=== PATIENT | female | born 2005 | race African-American/Black ===

== ENCOUNTER 2024-09-27 13:26 | Emergency (ER) | payer OTHER, SELFPAY ==
[2024-09-27] VITALS (7 sets, daily range): BP systolic 98–121; BP diastolic 58–72; PULSE 95–128; RESP 18–26; TEMP 37.2–39.2; O2SAT 96–100
--- NOTE | ~2024-09-27 | XR_ITS ---
CHEST RADIOGRAPH CLINICAL HISTORY: cough . COMPARISON: None available TECHNIQUE: Single portable view of the chest. FINDINGS The cardiomediastinal silhouette is unremarkable. The lungs are clear. Visualized osseous structures and soft tissues are unremarkable. IMPRESSION: No focal infiltrate or effusion. Reviewed, dictated and finalized at location A. LING MANAGER
--- OUTSIDE RECORDS SUMMARY | 2024-09-27 13:28 | XMS_ITS | Clinical Summary ---
Author Organization [facility] Address [address] [place] [address] Care Team Providers Care Cilnical Scientist Name Role Phone Abhay Weaver MD Primary Care Provider [phone] Source Comments [facility],non-owned Affiliates and Associated Physician Practices is amultiple site organization consisting of ambulatory clinics and hospital sitesin [place], [place], [place] and [place]. This disclosure is being madepursuant to the Care Everywhere program and may not contain all information available regarding this patient. Last updated 18.[facility] Allergies No known active allergies Medications * Be aware that medications may not be up to date on this document. Alwaysverify current medications with the patient. Medication Sig Dispensed Refills Start Date End Date Status Pediatric Multivitamins-Iron (DECLAN DROPS/IRON PO) Take by mouth. Active ibuprofen (ADVIL; MOTRIN) 100 MG/5ML SUSP suspension Take 9 mL by mouth every 6 hours as needed for Pain and Fever. 240 mL 0 10/07/2010 Active Social History Tobacco Use Types Packs/Day Years Used Date Smoking Tobacco: Never Smokeless Tobacco: Never Alcohol Use Standard Drinks/Week Comments No 0 (1 standard drink = 0.6 oz pur e alcohol) Sex and Gender Information Value Date Recorded Sex Assigned at Not on file Gender Identity Not on file Sexual Orientation Not on file Last Filed Vital Signs Vital Sign Reading Time Taken Comments Blood Pressure 102/78 11/16/2017 8:58 PM CDT Pulse 87 11/16/2017 8:58 PM CDT Temperature 37.3 ??C (99.1 ??F) 11/16/2017 8:58 PM CD T Respiratory Rate 20 11/16/2017 8:58 PM CDT Oxygen Saturation 100% 11/16/2017 8:58 PM CDT Inhaled Oxygen Concentration - - Weight 44.1 kg (97 lb 3.6 oz) 11/16/2017 8:58 PM CDT Height 168 cm (5' 6.14 ) 11/16/2017 8:58 PM CDT Body Mass Index 15.62 11/16/2017 8:58 PM CDT Plan of Treatment Health Maintenance Due Date Last Done Comments HIV SCREENING 01/10/2019 HPV VACCINE (1 - 3-dose series) 01/10/2019 CHLAMYDIA/GONORRHEA SCREENING 2020 MENINGOCOCCAL (Group B) VACC INE (1 of 2 - Standard) 2020 HEPATITIS C SCREENING 01/06/2022 DTAP/TDAP/TD VACCINES (1 - Tdap) 01/10/2023 HEPATITIS B VACCINE (1 of 3 - 19+ 3-dose series) 01/10/2023 COVID-19 VACCINE (1 - 2023-2 5 season) 2024 INFLUENZA VACCINE (#1) 2024 DEPRESSION SCREENING 09/03/2024 ZOSTER VACCINE (1 of 2) 01/10/2054 HIB VACCINE Aged Out No longer eligi ble based on patient's age to complete this topic MENINGOCOCCAL VACCINE Aged Out No diaz amaya eligible based on patient's age to complete this topic PNEUMOCOCCAL VACCINE Aged Out No long er eligible based on patient's age to complete this topic Care Teams Cilnical Scientist Relationship Specialty Start Date End Date Abhay Weaver MD [facility] [address] [place] [address] PCP - General 10/07/10
--- OUTSIDE RECORDS SUMMARY | 2024-09-27 13:28 | XMS_ITS | Patient Health Summary ---
Author Organization [facility] [employer] Address [address] [place] [address] Care Team Providers Care Dobie Worker Name Role Phone Abhay Weaver MD Primary Care Provider [phone] Note from [facility],non-owned Affiliates and Associated Physician Practices is amultiple site organization consisting of ambulatory clinics and hospital sitesin [place], [place], [place] and [place]. This disclosure is being madepursuant to the Care Everywhere program and may not contain all information available regarding this patient. Last updated 18.[facility] Allergies No known active allergies Medications * Be aware that medications may not be up to date on this document. Alwaysverify current medications with the patient. * Pediatric Multivitamins-Iron (DECLAN DROPS/IRON PO) Take by mouth. * ibuprofen (ADVIL; MOTRIN) 100 MG/5ML SUSP suspension(Started 10/07/2010) Take 9 mL by mouth every 6 hours as needed for Pain and Fever. Social History Tobacco Use Types Packs/Day Years [...] Mass Index 15.62 11/16/2017 8:58 PM CDT Procedures * US BREAST BILATERAL LTD(Performed 08/19/2020) Performed for Lump or mass in breast * CULTURE STREP GROUP A(Performed 11/16/2017) * STREP A SCREEN DIRECT W RFLX STREP A CULTURE(Performed 11/16/2017) * US PELVIS W DOPPLER OVARIES(Performed 05/11/2015) Performed for Left lower quadrant pain * LIPASE BLOOD(Performed 05/11/2015) * AMYLASE BLOOD(Performed 05/11/2015) * COMPREHENSIVE METABOLIC PANEL(Performed 05/11/2015) * CBC W AUTO DIFFERENTIAL(Performed 05/11/2015) * XR ABD OBSTRUCTION SERIES 2VW(Performed 05/10/2015) Performed for Left lower quadrant pain * URINE MICROSCOPIC ONLY(Performed 05/10/2015) * URINALYSIS REFLEX TO MICROSCOPIC NO CULTURE(Performed 05/10/2015) * CULTURE URINE(Performed 05/10/2015) * CULTURE STREP GROUP A(Performed 10/07/2010) * STREP A SCREEN DIRECT(Performed 10/07/2010) Results * (ABNORMAL) US BREAST BILATERAL LTD (08/19/2020 3:15 PM CYTOLOGY MANAGER) Anatomical Region Laterality Modality Breast Bilateral Ultrasound 08/19/2020 3:16 PM CYTOLOGY MANAGER Narrative 08/19/2020 3:28 PM CYTOLOGY MANAGER BILATERAL BREAST LIMITED ULTRASOUND INDICATION: Palpable lumps in bilateral breasts FINDINGS: In the 8:00 position of the right breast, approximately 6 cm from the nipple, corresponding with the area of palpable lump, there is an ovoid 1.6 x 0.9 x 1.7 cm hypoechoic mass with smooth well-defined margins. The mass is uniform in echotexture and is wider than tall. In the 3:00 position of the left breast, approximately 3 cm from the nipple, corresponding with the area of palpable abnormality, there is a 2.0 x 1.8 x 1.7 cm hypoechoic mass with smooth well-defined margins. This mass is similar in contour and echotexture to the mass in the right breast. Both of these masses demonstrate the imaging characteristics of benign fibroadenomas. Given these findings, and the patient's age, these are considered probably benign findings and six-month follow-up bilateral breast ultrasounds are recommended. Alternatively, if clinician or patient concern is great enough, biopsies could be considered. These findings were discussed with the patient and her mother at the time of the ultrasound. ASSESSMENT: BI-RADS 3 - ??Probably Benign - Short Interval Follow-up Suggested RECOMMENDATION: Six-month follow-up bilateral breast ultrasound *Reading Radiologist: Dontae Mcfadden on 08/19/2020 at 3:28 PM Abhay Weaver MD US ORDERABLES * STREP A SCREEN DIRECT W RFLX STREP A CULTURE (11/16/2017 9:02 PM CDT) Strep A Rapid Negative Negative 11/16/2017 9:31 PM CDT [facility] Microbiology ENTIRE THROAT (SURFACE REGION OF NECK) / Unknown Collection / Unknown 11/16/2017 9:02 PM CDT 11/16/2017 9:16 PM CDT Narrative [facility] - 11/16/2017 9:31 PM CDT Test has reflexed to a Strep A culture. Enmanuel Cruz MD LAB - MICROBIOLOGY O CARLOS A Performing Organization Address [facility]/ZIP Co de Phone Number [facility] [address] [place] [phone] * CULTURE STREP GROUP A (11/16/2017 9:02 PM CDT) Only the most recent of2 resultswithin the time period is included. Culture Negative for beta-hemolytic Streptococcus Group A AV 11/19/2017 10:00 AM CDT [facility] Microbiology ENTIRE THROAT (SURFACE REGION OF NECK) / Unknown Collection / Unknown 11/16/2017 9:02 PM CDT 11/16/2017 9:16 PM CDT Enmanuel Cruz MD LAB - MICROBIOLOGY O CARLOS A [facility] [address] [place] [address], [facility] [phone] * US PELVIS W DOPPLER UTERUS OVARIES (05/11/2015 1:23 AM CDT) Anatomical Region Laterality Modality Ultrasound 05/11/2015 7:35 AM CDT Impressions 05/11/2015 9:32 AM CDT No sonographic evidence of ovarian torsion. The preliminary findings were discussed with Dr. Chu by Dr. Castaneda on May 11, 2015 at 0208. I, Kena Watson, have personally reviewed the images and I agree with this report. Narrative 05/11/2015 9:32 AM CDT EXAMINATION: ??Pelvic Sonogram with abdomen organ Doppler (complete) HISTORY: 10-year-old female with left lower quadrant abdominal pain. COMPARISON: ??None FINDINGS: The uterus is normal in appearance. It measures 3.1 x 0.8 x 2.0 cm. The endometrial stripe measures 1 mm. The left ovary measures 1.7 x 1.1 x 2.4 cm for a volume of 2.5 mL. ??The right ovary measures 2.0 x 1.1 x 1.8 cm for a volume of 2.0 mL. The ovarian volumes are normal for the patient's age. Symmetric flow seen on color Doppler evaluation with spectral waveform analysis. ??There are no dominant cysts or masses. Small follicles are seen in both ovaries. There is no evidence of pelvic ascites. The bladder is distended with urine but otherwise unremarkable. Procedure Note Kena Watson MD - 05/11/2015 EXAMINATION: Pelvic Sonogram with abdomen organ Doppler (complete) HISTORY: 10-year-old female with left lower quadrant abdominal pain. COMPARISON: None FINDINGS: The uterus is normal in appearance. It measures 3.1 x 0.8 x 2.0 cm. The endometrial stripe measures 1 mm. The left ovary measures 1.7 x 1.1 x 2.4 cm for a volume of 2.5 mL. The right ovary measures 2.0 x 1.1 x 1.8 cm for a volume of 2.0 mL. The ovarian volumes are normal for the patient's age. Symmetric flow seen on color Doppler evaluation with spectral waveform analysis. There are no dominant cysts or masses. Small follicles are seen in both ovaries. There is no evidence of pelvic ascites. The bladder is distended with urine but otherwise unremarkable. IMPRESSION No sonographic evidence of ovarian torsion. The preliminary findings were discussed with Dr. Chu by Dr. Castaneda on May 11, 2015 at 0208. I, Kena Watson, have personally reviewed the images and I agree with this report. Melida Chu MD ORDERABLES * (ABNORMAL) COMPREHENSIVE METABOLIC PANEL (05/11/2015 12:09 AM [facility]) Glucose 108(H) 70 - 105 mg/dL 05/11/2015 12:56 AM [facility] Sodium 141 136 - 145 mmol/L 05/11/2015 12:56 AM [facility] Potassium 4.8 3.5 - 5.1 mmol/L 05/11/2015 12:56 AM [facility] Chloride 109(H) 98 - 107 mmol/L 05/11/2015 12:56 AM [facility] CO2 19(L) 20 - 28 mmol/L 05/11/2015 12:56 AM [facility] Calcium 10.18 8.92 - 10.32 mg/dL 05/11/2015 12:56 AM [facility] Anion Gap 13 5 - 20 mmol/L 05/11/2015 12:56 AM [facility] BUN 5.8(L) 6.1 - 21.0 mg/dL 05/11/2015 12:56 AM [facility] Creatinine 0.44(L) 0.62 - 1.00 mg/dL 05/11/2015 12:56 AM [facility] Alkaline Phosphatase 426(H) 100 - 320 U/L 05/11/2015 12:56 AM [facility] ALT 13 8 - 65 U/L 05/11/2015 12:56 AM [facility] AST 32 3 - 35 U/L 05/11/2015 12:56 AM [facility] Protein Total 8.2 6.4 - 8.5 gm/dL 05/11/2015 12:56 AM [facility] Albumin 4.6 3.3 - 5.0 gm/dL 05/11/2015 12:56 AM [facility] Bilirubin Total 0.5 0.3 - 1.2 mg/dL 05/11/2015 12:56 AM CDT [facility] eGFR by MDRD mL/min/1. 73m2 05/11/2015 12:56 AM T [facility] Comment: eGFR calculations are not performed for children under 18 years old. eGFR by MDRD mL/min/1. 73m2 05/11/2015 12:56 AM CDT [facility] Comment: eGFR calculations are not performed for children under 18 years old. Blood BLOOD SPECIMEN / Unknown 05/11/2015 12:09 AM CDT 05/11/2015 12:39 AM CDT Melida Chu MD LAB - CHEMISTRY OR DERABLES Performing Organization Address [facility] Co de Phone Number [facility] [address] [place] [address] * LIPASE BLOOD (05/11/2015 12:09 AM CDT) Lipase 10 10 - 220 U/L 05/11/2015 12:56 AM CDT [facility] Blood BLOOD SPECIMEN / Unknown 05/11/2015 12:09 AM CDT 05/11/2015 12:39 AM CDT Melida Chu MD LAB - CHEMISTRY OR DERABLES Performing Organization Address [facility] Co de Phone Number [facility] [address] [place] [address] * (ABNORMAL) AMYLASE BLOOD (05/11/2015 12:09 AM CDT) Amylase 85(H) 5 - 65 U/L 05/11/2015 12:56 AM CDT [facility] Blood BLOOD SPECIMEN / Unknown 05/11/2015 12:09 AM CDT 05/11/2015 12:39 AM CDT Melida Chu MD LAB - CHEMISTRY OR DERABLES Performing Organization Address [facility] Co de Phone Number [facility] [address] [place] [phone] * (ABNORMAL) CBC W AUTO DIFFERENTIAL (05/11/2015 12:08 AM CDT) [facility] WBC 7.6 4.5 - 14.5 x10^9/L 05/11/2015 12:45 AM [facility] WBC Corrected x10^9/L 05/11/2015 12:45 AM [facility] RBC 4.18 4.00 - 5.20 x10^12/L 05/11/2015 12:45 AM [facility] Hemoglobin 12.5 11.5 - 15.5 gm/dL 05/11/2015 12:45 AM [facility] Hematocrit 37.0 35.0 - 45.0 % 05/11/2015 12:45 AM [facility] MCV 88.5 77.0 - 95.0 fl 05/11/2015 12:45 AM [facility] MCH 29.9 25.0 - 33.0 pg 05/11/2015 12:45 AM [facility] MCHC 33.8 31.0 - 37.0 gm/dL 05/11/2015 12:45 AM [facility] Platelet Count 324 100 - 400 x10^9/L 05/11/2015 12:45 AM [facility] RDW-CV 13.2 11.5 - 14.0 % 05/11/2015 12:45 AM [facility] MPV 11.2(H) 6.0 - 9.5 fl 05/11/2015 12:45 AM [facility] Neutrophils % 30.3 24.0 - 66.0 % 05/11/2015 12:45 AM [facility] Lymphocytes % 59.1 22.0 - 61.0 % 05/11/2015 12:45 AM [facility] Monocytes % 6.6 3.0 - 15.0 % 05/11/2015 12:45 AM [facility] Eosinophils % 3.3 0.0 - 10.0 % 05/11/2015 12:45 AM [facility] Basophils % 0.3 % 05/11/2015 12:45 AM [facility] Immature Granulocytes 0.4 % 05/11/2015 12:45 AM [facility] Neutrophil Absolute 2.31 x10^9/L 05/11/2015 12:45 AM CDT [facility] Lymphocytes Absolute 4.49 x10^9/L 05/11/2015 12:45 AM CDT [facility] Monocytes Absolute 0.50 x10^9/L 05/11/2015 12:45 AM CDT [facility] Eosinophils Absolute 0.25 x10^9/L 05/11/2015 12:45 AM CDT [facility] Basophils Absolute 0.02 x10^9/L 05/11/2015 12:45 AM CDT [facility] Immature Granulocytes Absolute 0.03 x10^9/L 05/11/2015 12:45 AM CDT [facility] Blood BLOOD SPECIMEN / Unknown 05/11/2015 12:08 AM CDT 05/11/2015 12:32 AM CDT Melida Chu MD LAB - HEMATOLOGY O RDERABLES Performing Organization Address City/State/[facility] Co de Phone Number [facility] [address] [place] [address] * XR ABD OBSTR SERIES (05/10/2015 10:46 PM CDT) Anatomical Region Laterality Modality Abdomen Radiographic Jessica ging 05/11/2015 7:11 AM CDT Impressions 05/11/2015 7:12 AM CDT Nonobstructive bowel gas pattern. Retained stool. Narrative 05/11/2015 7:12 AM CDT Exam: Abdomen obstruction series History: 10-year-old female with left lower quadrant pain, vomiting, and diarrhea Comparison: None Findings: Stool and gas are seen throughout the colon and rectum. No abnormally dilated loops of bowel are seen. An air-fluid level is present in the stomach. There is no pneumatosis or free intraperitoneal air. No abnormal calcifications are seen. The lung bases are clear. The osseous structures are intact and well aligned. Procedure Note Kate Blair MD - 05/11/2015 Exam: Abdomen obstruction series History: 10-year-old female with left lower quadrant pain, vomiting, and diarrhea Comparison: None Findings: Stool and gas are seen throughout the colon and rectum. No abnormally dilated loops of bowel are seen. An air-fluid level is present in the stomach. There is no pneumatosis or free intraperitoneal air. No abnormal calcifications are seen. The lung bases are clear. The osseous structures are intact and well aligned. IMPRESSION Nonobstructive bowel gas pattern. Retained stool. Qasim Corral MD DIAGNOSTIC IMAGING O RDERABLES * (ABNORMAL) URINALYSIS ROUTINE AUTO (05/10/2015 10:23 PM CDT) Color UA Yellow Straw, Yellow, Dark Yellow 05/10/2015 10:40 PM CDT [facility] Clarity UA Clear 05/10/2015 10:40 PM CDT [facility] Specific D Hanis UA 1.025 1.005 - 1.030 05/10/2015 10:40 PM CDT [facility] pH UA 7.0 5.0 - 8.0 pH 05/10/2015 10:40 PM CDT [facility] Protein UA 1+(A) Negative 05/10/2015 10:40 PM CDT [facility] Blood UA Negative Negative 05/10/2015 10:40 PM CDT [facility] Leukocyte UA Negative Negative 05/10/2015 10:40 PM CDT [facility] Nitrite UA Negative Negative 05/10/2015 10:40 PM CDT [facility] Glucose UA Negative Negative 05/10/2015 10:40 PM CDT [facility] Ketone UA Negative Negative 05/10/2015 10:40 PM CDT [facility] Bilirubin UA Negative Negative 05/10/2015 10:40 PM CDT [facility] Urobilinogen UA 1.0 0.1 - 1.0 EU/dL 05/10/2015 10:40 PM T [facility] Urine URINE SPECIMEN OBTAINED BY CLEAN CATCH PROCEDURE / Unknown 05/10/2015 10:23 PM CDT 05/10/2015 10:29 PM CDT Melida Chu MD LAB - URINALYSIS O RDERABLES [facility] [place] [address] * (ABNORMAL) URINALYSIS MICROSCOPIC ONLY (05/10/2015 10:23 PM CDT) RBC UA 0-2 0-2, 2-5 # /hpf 05/10/2015 10:44 PM CDT [facility] WBC UA 2-5 0-2, 2-5 # /hpf 05/10/2015 10:44 PM CDT [facility] Bacteria UA 2+(A) None Seen, Trace 05/10/2015 10:44 PM CDT [facility] Epithelial Cell UA 2-5 0-2, 2-5 05/10/2015 10:44 PM CDT [facility] Mucus UA 1+ 05/10/2015 10:44 PM CDT [facility] Urine URINE SPECIMEN OBTAINED BY CLEAN CATCH PROCEDURE / Unknown 05/10/2015 10:23 PM CDT 05/10/2015 10:29 PM CDT Melida Chu MD LAB - URINALYSIS O RDERABLES Performing Organization Address City/[facility]/ZIP Co de Phone Number [facility] [address] [place] [phone] * CULTURE URINE (05/10/2015 10:23 PM CDT) Pathologist [facility] Culture <10,000 CFU/mL normal skin/urogen ital tiffany AV 05/13/2015 6:18 AM CDT [facility] Urine URINE SPECIMEN OBTAINED BY CLEAN CATCH PROCEDURE / Unknown 05/10/2015 10:23 PM CDT 05/11/2015 3:43 PM CDT Melida Chu MD LAB - MICROBIOLOGY ORDERABLES [facility] [address] [phone] * STREP A SCREEN DIRECT (10/07/2010 7:20 PM CYTOLOGY MANAGER) Strep A Rapid Negative Neg Grp A Beta Strep [facility] ENTIRE THROAT (SURFACE REGION OF NECK) / Unknown 10/07/2010 7:20 PM CYTOLOGY MANAGER 10/07/2010 7:23 PM CYTOLOGY MANAGER Sophia Rojas RN,CPNP LAB - MICROBIO LOGY ORDERABLES [facility] [address] [place] [address] Care Teams Dobie Worker Relationship Specialty Start Date End Date Abhay Weaver MD [address] [address] PCP - General 10/07/10
--- OUTSIDE RECORDS SUMMARY | 2024-09-27 13:28 | XMS_ITS | Referral Summary ---
Author Organization [facility] [employer] Address [address] [place] [address] Care Team Providers Care Air Director Name Role Phone Abhay Weaver MD Primary Care Provider [phone] Source Comments [facility] [employer],non-owned Affiliates and Associated Physician Practices is amultiple site organization consisting of ambulatory clinics and hospital sitesin [place], [place], [place] and [place]. This disclosure is being madepursuant to the Care Everywhere program and may not contain all information available regarding this patient. Last updated 18.[facility] [employer] Allergies No known active allergies Medications * [...] 11/16/2017 8:58 PM CDT Plan of Treatment Not on file Care Teams Air Director Relationship Specialty Start Date End Date Abhay Weaver MD [address] [facility] [address] [place] [address] PCP - General 10/07/10
--- OUTSIDE RECORDS SUMMARY | 2024-09-27 13:28 | XMS_ITS | Clinical Summary ---
Author Organization [facility] Address [address] [place] [address]. [place], [place] [id number] [place] [id number] Care Team Providers Care Radio Electronics Officer Name Role Phone Abhay Weaver MD Primary Care Provider [phone] Allergies No known active allergies Medications ondansetron (ZOFRAN-ODT) 4 MG disintegrating tablet Take 1 tablet (4 mg total) by mouth every 8 (eight) hours as needed for Nausea. 20 tablet Active Social History Tobacco Use Types Packs/Day Years Used Date Smoking Tobacco: Never Smokeless Tobacco: Never Alcohol Use Standard Drinks/Week Comments Never 0 (1 standard drink = 0.6 oz pur e alcohol) Comments No Sex and Gender Information Value Date Recorded Sex Assigned at Not on file Legal Sex Female 11:46 AM LOADER OPERATOR/GROUND LEADER Gender Identity Not on file Sexual Orientation Not on file Last Filed Vital Signs Vital Sign Reading Time Taken Comments Blood Pressure 97/83 10/14/2022 7:11 PM LOADER OPERATOR/GROUND LEADER Pulse 139 10/14/2022 7:11 PM LOADER OPERATOR/GROUND LEADER Temperature 37.4 ??C (99.3 ??F) 10/14/2022 7:11 PM CS T Respiratory Rate 18 10/14/2022 7:11 PM LOADER OPERATOR/GROUND LEADER Oxygen Saturation 100% 10/14/2022 7:11 PM LOADER OPERATOR/GROUND LEADER Inhaled Oxygen Concentration - - Weight 49.1 kg (108 lb 3.9 oz) 10/14/2022 7:11 P M LOADER OPERATOR/GROUND LEADER Height 170.2 cm (5' 7 ) 10/14/2022 7:11 PM LOADER OPERATOR/GROUND LEADER Body Mass Index 16.95 10/14/2022 7:11 PM LOADER OPERATOR/GROUND LEADER Plan of Treatment Health Maintenance Due Date Last Done Comments Annual Physical 01/10/2007 HPV Vaccines (2 - 2-dose series) 12/12/2015 06/12/2015 Hepatitis C 01/10/2022 DTaP, Tdap and Td Vaccines ( 4 - Tdap) 01/10/2023 2004, 2004, 2004 COVID-19 Vaccine (2023-2 5 season) 2024 Influenza Adult (#1) 2024 2004 Pneumococcal Vaccine: Pediatrics (0 to 5 Years) and At-Risk Patients (6 to 64 Years) Aged Out 2004 No longer eligible b ased on patient's age to complete this topic Hepatitis B Vaccines Completed 02/12/2005, 2004, 2004 Meningococcal Vaccine Completed 04/15/2021 RSV Immunizations Under 20 Months Aged Out No longer eligible b ased on patient's age to complete this topic Insurance [employer] Care Teams Radio Electronics Officer Relationship Specialty Start Date End Date Abhay Weaver MD [facility] office center [address] [place] [address] PCP - General PEDIATRICS 10/03/19
[2024-09-27 14:17] LABS: Influenza A QL RT-PCR Negative (Negative); Influenza B QL RT-PCR Negative (Negative); RSV RNA, RT-PCR Negative (Negative); SARS-CoV-2 RNA PCR Positive (Negative)
--- OUTSIDE RECORDS SUMMARY | 2024-09-27 15:08 | XMS_ITS | Clinical Summary ---
Author Organization [facility] Address [address] [place] [address]. [place], [place] [id number] [place] [address] Care Team Providers Care Screw Machine Operator Single Spindle Name Role Phone Abhay Weaver MD Primary Care Provider [phone] Allergies No known active allergies Medications ondansetron [...] on file Legal Sex Female 11:46 AM [employer] SERVICE TECHNICIAN Gender Identity Not on file Sexual Orientation Not on file Last Filed Vital Signs Vital Sign Reading Time Taken Comments Blood Pressure 97/83 10/14/2022 7:11 PM [employer] SERVICE TECHNICIAN Pulse 139 10/14/2022 7:11 PM [employer] SERVICE TECHNICIAN Temperature 37.4 ??C (99.3 ??F) 10/14/2022 7:11 PM CS T Respiratory Rate 18 10/14/2022 7:11 PM [employer] SERVICE TECHNICIAN Oxygen Saturation 100% 10/14/2022 7:11 PM [employer] SERVICE TECHNICIAN Inhaled Oxygen Concentration - - Weight 49.1 kg (108 lb 3.9 oz) 10/14/2022 7:11 P M [employer] SERVICE TECHNICIAN Height 170.2 cm (5' 7 ) 10/14/2022 7:11 PM [employer] SERVICE TECHNICIAN Body Mass Index 16.95 10/14/2022 7:11 PM [employer] SERVICE TECHNICIAN Plan of Treatment Health Maintenance Due Date [...] complete this topic Insurance VIOLET Care Teams Screw Machine Operator Single Spindle Relationship Specialty Start Date End Date Abhay Weaver MD [facility] [address] [place] [address] PCP - General PEDIATRICS 10/03/19
--- OUTSIDE RECORDS SUMMARY | 2024-09-27 15:08 | XMS_ITS | Referral Summary ---
Author Organization [facility] Address [address] [place] [address] Care Team Providers Care Consumer Safety Inspector Name Role Phone Abhay Weaver MD Primary Care Provider [phone] Source Comments [facility],non-owned Affiliates and Associated Physician Practices is amultiple site organization consisting of ambulatory clinics and hospital sitesin [place], [place], [place] and [place]. This disclosure is being madepursuant to the Care Everywhere program and may not contain all information available regarding this patient. Last updated 18.[facility] Allergies No known active allergies Medications * [...] of Treatment Not on file Care Teams Consumer Safety Inspector Relationship Specialty Start Date End Date Abhay Weaver MD [address] [facility] 1 [place] [address] PCP - General 10/07/10
--- OUTSIDE RECORDS SUMMARY | 2024-09-27 15:08 | XMS_ITS | Clinical Summary ---
Author Organization [facility] Address [address] [place] [address] Care Team Providers Care Mental Health Specialist Name Role Phone Abhay Weaver MD Primary Care Provider [phone] Source Comments [facility],non-owned Affiliates and Associated Physician Practices is amultiple site organization consisting of ambulatory clinics and hospital sitesin [place], [place], [place] and [place]. This disclosure is being madepursuant to the Care Everywhere program and may not contain all information available regarding this patient. Last updated 18.[facility] Allergies No known active allergies Medications * [...] age to complete this topic Care Teams Mental Health Specialist Relationship Specialty Start Date End Date Abhay Weaver MD [facility] 1 [place] [address] PCP - General 10/07/10
--- OUTSIDE RECORDS SUMMARY | 2024-09-27 15:08 | XMS_ITS | Patient Health Summary ---
Author Organization [facility] Address [address] [place] [address] Care Team Providers Care Monitor Tech Name Role Phone Abhay Weaver MD Primary Care Provider [phone] Note from [facility],non-owned Affiliates and Associated Physician Practices is amultiple site organization consisting of ambulatory clinics and hospital sitesin [place], [place], [place] and [place]. This disclosure is being madepursuant to the Care Everywhere program and may not contain all information available regarding this patient. Last updated 18.[facility] Allergies No known active allergies Medications * [...] US BREAST BILATERAL LTD (08/19/2020 3:15 PM LOGISTICS MANAGEMENT SPECIALIST) Anatomical Region Laterality Modality Breast Bilateral Ultrasound 08/19/2020 3:16 PM LOGISTICS MANAGEMENT SPECIALIST Narrative 08/19/2020 3:28 PM LOGISTICS MANAGEMENT SPECIALIST BILATERAL BREAST LIMITED ULTRASOUND INDICATION: Palpable lumps [...] Rapid Negative Negative 11/16/2017 9:31 PM CDT [facility] Microbiology ENTIRE THROAT (SURFACE REGION OF NECK) / Unknown Collection / Unknown 11/16/2017 9:02 PM CDT 11/16/2017 9:16 PM CDT Narrative [facility] - 11/16/2017 9:31 PM CDT Test has reflexed to a Strep A culture. Enmanuel Cruz MD LAB - MICROBIOLOGY O CARLOS A Performing Organization Address [facility]/ZIP Co de Phone Number [facility] [address] [place] [phone] * CULTURE STREP GROUP A (11/16/2017 9:02 PM CDT) Only the most recent of2 resultswithin the time period is included. Culture Negative for beta-hemolytic Streptococcus Group A AV 11/19/2017 10:00 AM CDT [facility]CRO[facility] Microbiology ENTIRE THROAT (SURFACE REGION OF NECK) / Unknown Collection / Unknown 11/16/2017 9:02 PM CDT 11/16/2017 9:16 PM CDT Enmanuel Cruz MD LAB - MICROBIOLOGY O CARLOS A [facility] [address] [place] [address], [facility] [phone] * US PELVIS W DOPPLER UTERUS OVARIES [...] (ABNORMAL) COMPREHENSIVE METABOLIC PANEL (05/11/2015 12:[address] [facility]) Glucose 108(H) 70 - 105 mg/dL 05/11/2015 12:56 AM [facility] Sodium 141 136 - 145 mmol/L 05/11/2015 12:56 AM [facility] Potassium 4.8 3.5 - 5.1 mmol/L 05/11/2015 12:56 AM [facility] Chloride 109(H) 98 - 107 mmol/L 05/11/2015 12:56 AM [facility] CO2 19(L) 20 - 28 mmol/L 05/11/2015 12:56 AM [facility] Calcium 10.18 8.92 - 10.32 mg/dL 05/11/2015 12:56 AM [facility] Anion Gap 13 5 - 20 mmol/L 05/11/2015 12:56 AM [facility] BUN 5.8(L) 6.1 - 21.0 mg/dL 05/11/2015 12:56 AM [facility] Creatinine 0.44(L) 0.62 - 1.00 mg/dL 05/11/2015 12:56 AM [facility] Alkaline Phosphatase 426(H) 100 - 320 U/L 05/11/2015 12:56 AM [facility] ALT 13 8 - 65 U/L 05/11/2015 12:56 AM [facility] AST 32 3 - 35 U/L 05/11/2015 12:56 AM [facility] Protein Total 8.2 6.4 - 8.5 gm/dL 05/11/2015 12:56 AM [facility] Albumin 4.6 3.3 - 5.0 gm/dL 05/11/2015 12:56 AM [facility] Bilirubin Total 0.5 0.3 - 1.2 mg/dL 05/11/2015 12:56 AM CDT [facility] eGFR by MDRD mL/min/1. 73m2 05/11/2015 12:56 AM T [facility] Comment: eGFR calculations are not performed for children under 18 years old. eGFR by MDRD mL/min/1. 73m2 05/11/2015 12:56 AM CDT [facility] Comment: eGFR calculations are not performed for children under 18 years old. Blood BLOOD SPECIMEN / Unknown 05/11/2015 12:09 AM CDT 05/11/2015 12:39 AM CDT Melida Chu MD LAB - CHEMISTRY OR DERABLES Performing Organization Address [facility] Co de Phone Number [facility] [address] [place] [phone] * LIPASE BLOOD (05/11/2015 12:09 AM CDT) Lipase 10 10 - 220 U/L 05/11/2015 12:56 AM CDT [facility] Blood BLOOD SPECIMEN / Unknown 05/11/2015 12:09 AM CDT 05/11/2015 12:39 AM CDT Melida Chu MD LAB - CHEMISTRY OR DERABLES Performing Organization Address [facility] Co de Phone Number [facility] [address] [place] [phone] * (ABNORMAL) AMYLASE BLOOD (05/11/2015 12:09 AM CDT) Amylase 85(H) 5 - 65 U/L 05/11/2015 12:56 AM CDT [facility] Blood BLOOD SPECIMEN / Unknown 05/11/2015 12:09 AM CDT 05/11/2015 12:39 AM CDT Melida Chu MD LAB - CHEMISTRY OR DERABLES Performing Organization Address [facility] Co de Phone Number [facility] [address] [place] [phone] * (ABNORMAL) CBC W AUTO DIFFERENTIAL (05/11/2015 12:08 AM CDT) [facility] WBC 7.6 4.5 - 14.5 x10^9/L 05/11/2015 12:45 AM [facility] WBC Corrected x10^9/L 05/11/2015 12:45 AM [facility] RBC 4.18 4.00 - 5.20 x10^12/L 05/11/2015 12:45 AM [facility] Hemoglobin 12.5 11.5 - 15.5 gm/dL 05/11/2015 12:45 AM [facility] Hematocrit 37.0 35.0 - 45.0 % 05/11/2015 12:45 AM [facility] MCV 88.5 77.0 - 95.0 fl 05/11/2015 12:45 AM [facility] MCH 29.9 25.0 - 33.0 pg 05/11/2015 12:45 AM [facility] MCHC 33.8 31.0 - 37.0 gm/dL 05/11/2015 12:45 AM [facility] Platelet Count 324 100 - 400 x10^9/L 05/11/2015 12:45 AM [facility] RDW-CV 13.2 11.5 - 14.0 % 05/11/2015 12:45 AM [facility] MPV 11.2(H) 6.0 - 9.5 fl 05/11/2015 12:45 AM [facility] Neutrophils % 30.3 24.0 - 66.0 % 05/11/2015 12:45 AM [facility] Lymphocytes % 59.1 22.0 - 61.0 % 05/11/2015 12:45 AM [facility] Monocytes % 6.6 3.0 - 15.0 % 05/11/2015 12:45 AM [facility] Eosinophils % 3.3 0.0 - 10.0 % 05/11/2015 12:45 AM [facility] Basophils % 0.3 % 05/11/2015 12:45 AM [facility] Immature Granulocytes 0.4 % 05/11/2015 12:45 AM [facility] Neutrophil Absolute 2.31 x10^9/L 05/11/2015 12:45 AM CDT [facility] Lymphocytes Absolute 4.49 x10^9/L 05/11/2015 12:45 AM CDT [facility] Monocytes Absolute 0.50 x10^9/L 05/11/2015 12:45 AM CDT [facility] Eosinophils Absolute 0.25 x10^9/L 05/11/2015 12:45 AM CDT [facility] Basophils Absolute 0.02 x10^9/L 05/11/2015 12:45 AM CDT [facility] Immature Granulocytes Absolute 0.03 x10^9/L 05/11/2015 12:45 AM CDT [facility] Blood BLOOD SPECIMEN / Unknown 05/11/2015 12:08 AM CDT 05/11/2015 12:32 AM CDT Melida Chu MD LAB - HEMATOLOGY O RDERABLES Performing Organization Address City/State/[facility] Co de Phone Number [facility] [address] [place] [address] * XR ABD OBSTR SERIES (05/10/2015 10:46 [...] Yellow, Dark Yellow 05/10/2015 10:40 PM CDT [facility] Clarity UA Clear 05/10/2015 10:40 PM CDT [facility] Specific [place] UA 1.025 1.005 - 1.030 05/10/2015 10:40 PM CDT [facility] pH UA 7.0 5.0 - 8.0 pH 05/10/2015 10:40 PM CDT [facility] Protein UA 1+(A) Negative 05/10/2015 10:40 PM CDT [facility] Blood UA Negative Negative 05/10/2015 10:40 PM CDT [facility] Leukocyte UA Negative Negative 05/10/2015 10:40 PM CDT [facility] Nitrite UA Negative Negative 05/10/2015 10:40 PM CDT [facility] Glucose UA Negative Negative 05/10/2015 10:40 PM CDT [facility] Ketone UA Negative Negative 05/10/2015 10:40 PM CDT [facility] Bilirubin UA Negative Negative 05/10/2015 10:40 PM CDT [facility] Urobilinogen UA 1.0 0.1 - 1.0 EU/dL 05/10/2015 10:40 PM T [facility] Urine URINE SPECIMEN OBTAINED BY CLEAN CATCH PROCEDURE / Unknown 05/10/2015 10:23 PM CDT 05/10/2015 10:29 PM CDT Melida Chu MD LAB - URINALYSIS O RDERABLES [facility] [place] [address] * (ABNORMAL) URINALYSIS MICROSCOPIC ONLY (05/10/2015 10:23 PM CDT) RBC UA 0-2 0-2, 2-5 # /hpf 05/10/2015 10:44 PM CDT [facility] WBC UA 2-5 0-2, 2-5 # /hpf 05/10/2015 10:44 PM CDT [facility] Bacteria UA 2+(A) None Seen, Trace 05/10/2015 10:44 PM CDT [facility] Epithelial Cell UA 2-5 0-2, 2-5 05/10/2015 10:44 PM CDT [facility] Mucus UA 1+ 05/10/2015 10:44 PM CDT [facility] Urine URINE SPECIMEN OBTAINED BY CLEAN CATCH PROCEDURE / Unknown 05/10/2015 10:23 PM CDT 05/10/2015 10:29 PM CDT Melida Chu MD LAB - URINALYSIS O RDERABLES Performing Organization Address City/[facility]/ZIP Co de Phone Number [facility] [address] [place] [phone] * CULTURE URINE (05/10/2015 10:23 PM CDT) Pathologist [facility] Culture <10,000 CFU/mL normal skin/urogen ital tiffany AV 05/13/2015 6:18 AM CDT [facility] Urine URINE SPECIMEN OBTAINED BY CLEAN CATCH PROCEDURE / Unknown 05/10/2015 10:23 PM CDT 05/11/2015 3:43 PM CDT Melida Chu MD LAB - MICROBIOLOGY ORDERABLES [facility] [address] [phone] * STREP A SCREEN DIRECT (10/07/2010 7:20 PM LOGISTICS MANAGEMENT SPECIALIST) Strep A Rapid Negative Neg Grp A Beta Strep [facility] ENTIRE THROAT (SURFACE REGION OF NECK) / Unknown 10/07/2010 7:20 PM LOGISTICS MANAGEMENT SPECIALIST 10/07/2010 7:23 PM LOGISTICS MANAGEMENT SPECIALIST Sophia Rojas RN,CPNP LAB - MICROBIO LOGY ORDERABLES [facility] [address] [place] [address] Care Teams Monitor Tech Relationship Specialty Start Date End Date Abhay Weaver MD [address] [address] PCP - General 10/07/10
--- NOTE | 2024-09-27 15:45 | ED.GENADULT ---
HPI - General Adult General Chief complaint: Unspecified Stated complaint: sore throat, fatigue Time Seen by Provider: 09/27/24 15:01 History of Present Illness HPI narrative: Patient is a 19 year old female who presents to the ER with a 2 day history of headache, fatigue, cough, nausea, vomiting. She reports her stepfather has also been sick but has not been diagnosed with anything. Patient denies any recent fevers. She denies any medical history related to this ER visit. Patient denies any chest pain, shortness of breath, wheezing, urinary symptoms, recent fevers. Related Data Home Medications ?Medication ?Instructions ?Recorded ?Confirmed ?Last Taken ?Type No Home Medications 09/27/24 09/27/24 Unknown History Allergies Allergy/AdvReac Type Severity Reaction Status Date / Time No Known Allergies Allergy Unverified 09/27/24 15:01 Review of Systems Review of Systems: All systems reviewed & are unremarkable except as noted in HPI and below PMFSH Surgical History Surgical History History of removal of skin mole Family History Family History Father Hypertension Grandparent Hypertension Diabetes mellitus Social History Social History Smoking status: Never smoker Alcohol intake: current Alcohol use details: on occasion Substance use: never Substance use type: does not use Do You Feel Safe in your Home?: Yes Lack of Transportation: No Current Housing: I Have Housing Concerned About Future Housing: No Difficulty Paying Gas/Electric Bills: Decline to Answer Difficulty Paying for Meds: No Currently Unemployed: No Education: High School Diploma/GED Living arrangements: with family Occupation/Education: occupation Gender identity (if verbalized by the patient): Female Sexual Orientation (if Verbalized by the Patient): Straight or Heterosexual Exam Narrative: GENERAL: Ill-appearing, well-nourished, non-toxic, in no acute distress. HEAD: Normocephalic, atraumatic. NECK: Supple. No adenopathy, no masses. RESPIRATORY: Airway patent, respirations nonlabored. Clear to auscultation bilaterally, no rales, rhonchi, wheezing. CARDIOVASCULAR: Tachycardia with regular rhythm without murmurs, rubs, or gallops. Peripheral pulses 2+ and equal bilaterally. ABDOMINAL: Soft, nontender, nondistended, no hepatosplenomegaly. Normoactive BS. MUSCULOSKELETAL: Moves all extremities. Strength/ROM intact without gross deformities. SKIN: Warm, dry, normal color. No rashes. NEURO: A&O X3. Speech clear. Cranial nerves II-XII grossly intact. Steady gait. No ataxic movements. PSYCHIATRIC: Appropriate mood and affect. Normal interaction. Course Vital Signs Vital signs: Vital Signs Temperature 39.2 C H 09/27/24 13:28 Pulse Rate 128 H 09/27/24 13:28 Respiratory Rate 18 09/27/24 13:28 Blood Pressure 121/71 09/27/24 13:28 Pulse Oximetry 100 09/27/24 13:28 Oxygen Delivery Room Air 09/27/24 13:28 Temperature 37.6 C H 09/27/24 18:48 Pulse Rate 95 09/27/24 18:48 Respiratory Rate 24 H 09/27/24 18:48 Blood Pressure 98/58 L 09/27/24 18:48 Pulse Oximetry 100 09/27/24 18:48 Oxygen Delivery Room Air 09/27/24 17:14 Medical Decision Making MDM Narrative Medical decision making narrative: Patient is a 19 year old female who presents to the ER with a 2 day history of headache, fatigue, cough, nausea, vomiting. She reports her stepfather has also been sick but has not been diagnosed with anything. Patient denies any recent fevers. She denies any medical history related to this ER visit. Patient denies any chest pain, shortness of breath, wheezing, urinary symptoms, recent fevers. Labs Ordered: CBC, CMP, COVID/flu/RSV Imaging Ordered: Chest x-ray, EKG Medications Ordered: Tylenol, Toradol, 2 L normal saline, Zofran Results: COVID positive, patient's chest x-ray indicates The cardiomediastinal silhouette is unremarkable. The lungs are clear. Visualized osseous structures and soft tissues are unremarkable. Diagnosis: COVID positive Patient Education/Shared MDM: Results shared with patient. Patient endorses significant relief after Tylenol and Toradol administration. She will be given additional a 1 L normal saline IV bolus prior to discharge. Patient will be discharged home with a prescription for Zofran. She was advised to stay hydrated at home and use Tylenol/ibuprofen for fever and discomfort. Patient given strict return precautions. Tachycardia resolved upon time of discharge (HR rate @ 1745 is 103). Patient is no longer febrile, vital signs stable. All questions answered. Patient and her mother verbalized understanding and are in agreement with plan for discharge. Differential Diagnosis Differential Diagnosis: COVID, RSV, influenza, pneumonia, dehydration Vital Signs Vital Signs: Vital Signs Temperature 39.2 C H 09/27/24 13:28 Pulse Rate 128 H 09/27/24 13:28 Respiratory Rate 18 09/27/24 13:28 Blood Pressure 121/71 09/27/24 13:28 Pulse Oximetry 100 09/27/24 13:28 Oxygen Delivery Room Air 09/27/24 13:28 Temperature 37.6 C H 09/27/24 18:48 Pulse Rate 95 09/27/24 18:48 Respiratory Rate 24 H 09/27/24 18:48 Blood Pressure 98/58 L 09/27/24 18:48 Pulse Oximetry 100 09/27/24 18:48 Oxygen Delivery Room Air 09/27/24 17:14 Lab Data Lab results reviewed: Yes I reviewed the patient's lab results. 09/27/24 16:10 09/27/24 16:10 Labs: Lab Results 09/27/24 09/27/24 Range/Units 13:33 16:10 WBC 4.6 (4.5-10.0) K/mm3 RBC 3.80 L (4.2-5.4) M/mm3 Hgb 11.6 L (12.0-15.0) g/dL Hct 35.4 L (37.0-47.0) % MCV 93.2 (80-100) fl MCH 30.5 (26-34) pg MCHC 32.8 (32-36) g/dl RDW 13.5 (11.5-14.5) % Plt Count 199 (150-375) k/mm3 MPV 10.5 H (7.4-10.4) fl Immature Gran % (Auto) 0.2 (0-0.5) % Neut % (Auto) 78.9 H (45.5-73.1) % Lymph % (Auto) 8.5 L (18.3-44.2) % [place] % (Auto) 12.2 H (2.6-8.5) % Eos % (Auto) 0.0 (0-4.4) % Baso % (Auto) 0.2 (0.2-1.2) % Lymph # (Auto) 0.39 L (0.9-3.2) K/mm3 [place] # (Auto) 0.6 (0.1-0.6) K/mm3 Eos # (Auto) 0.0 (0-0.3) K/mm3 Baso # (Auto) 0.0 (0.0-0.1) K/mm3 Abs Immat Gran (auto) 0.01 (0.00-0.031) K/mm3 Absolute Neuts (auto) 3.6 (1.3-6.7) K/mm3 Absolute Nucleated RBC 0.000 (0.0-0.012) K/mm3 Nucleated RBC % 0.0 (0.0-0.2) % Sodium 137 (137-145) mmol/L Potassium 3.5 (3.4-5.0) mmol/L Chloride 106 (98-107) mmol/L Carbon Dioxide 18 L (22-30) mmol/L Anion Gap 13 H (4-12) mmol/L BUN 9 (7-17) mg/dL Creatinine 0.56 L (0.7-1.0) mg/dL Estim Creat Clear Calc Not Reportable Estimated GFR > 60 (59 - ) Glucose 90 (65-110) mg/dL Calcium 8.5 (8.4-10.2) mg/dL Total Bilirubin 1.2 (0.2-1.3) mg/dL AST 28 (14-36) U/L ALT 12 (6-35) U/L Alkaline Phosphatase 72 (38-126) U/L Total Protein 7.0 (6.3-8.2) g/dL Albumin 4.1 (3.5-5.1) g/dL Influenza A (RT-PCR) Negative (Negative) Influenza B (RT-PCR) Negative (Negative) RSV (RT-PCR) Negative (Negative) SARS-CoV-2 RNA (RT-PCR) Positive A (Negative) Imaging Data Attestation: I personally reviewed and interpreted this imaging study as follows: Radiologist's impression: Impressions Chest X-Ray 09/27/24 17:41 IMPRESSION: No focal infiltrate or effusion. Discharge Plan Discharge Clinical Impression: Acute upper respiratory infection, Influenza A, Dehydration, mild Patient Disposition: Home, Self-Care Condition: Stable Instructions: Antibiotic Form, Influenza (ED) Additional Instructions: Please return to the ER with an worsening symptoms. Follow-up with primary care provider in the next 2-3 days. Take all medications as prescribed. Patient Language: Lithuanian Prescriptions: No Action No Home Medications Follow-up/Referrals: Owen,MD Abhay [Primary Care Provider] -
--- NOTE | 2024-09-27 16:04 | ECG_ITS ---
Test Date: 2024-09-27 16:39:56 Measurements Intervals [place] Rate: 115 P: 0 ID: 0 QRS: 74 QRSD: 85 T: -10 QT: 306 QTc: 424 Interpretive Statements sinus tachycardia POSSIBLE RIGHT VENTRICULAR CONDUCTION DELAY [RSR (QR) IN V1/V2] NONSPECIFIC T-WAVE ABNORMALITY No previous ECG available for comparison Electronically Signed On 09-27-2024 21:25:34 SEISMOGRAPH OBSERVER by Solo Carlisle M.D.
[2024-09-27] MEDS: ACETAMINOPHEN 500 MG TABLET 1000 MG PO (16:17)
[2024-09-27] MEDS: SODIUM CHLORIDE 0.9% IV 1,000 ML 999 ML IV CONT ×2 (16:17→17:48)
[2024-09-27] MEDS: ONDANSETRON INJ 4 MG/2 ML VIAL IV PUSH (16:18)
[2024-09-27] MEDS: KETOROLAC 15 MG/ML VIAL (*BKC) IV PUSH (16:18)
[2024-09-27 16:26] LABS: Basophils Percent Auto 0.2 % (0.2-1.2); Hematocrit 35.4 % (37.0-47.0); Hemoglobin 11.6 g/dL (12.0-15.0); Immature Granulocyte Absolute 0.01 K/mm3 (0.00-0.031); Immature Granulocyte Percent A 0.2 % (0-0.5); Lymphocytes Absolute Auto 0.39 K/mm3 (0.9-3.2); Lymphocytes Percent Auto 8.5 % (18.3-44.2); Mean Corpuscular HGB Conc 32.8 g/dl (32-36); Mean Corpuscular Hemoglobin 30.5 pg (26-34); Mean Corpuscular Volume 93.2 fl (80-100); Mean Platelet Volume 10.5 fl (7.4-10.4); Monocytes Absolute Auto 0.6 K/mm3 (0.1-0.6); Monocytes Percent Auto 12.2 % (2.6-8.5); Neutrophils Absolute Auto 3.6 K/mm3 (1.3-6.7); Neutrophils Percent Auto 78.9 % (45.5-73.1); Platelet Count Result 199 k/mm3 (150-375); Red Cell Distribution Width 13.5 % (11.5-14.5); White Blood Count 4.6 K/mm3 (4.5-10.0)
[2024-09-27 16:44] LABS: Alanine Aminotransferase 12 U/L (6-35); Albumin Level 4.1 g/dL (3.5-5.1); Alkaline Phosphatase 72 U/L (38-126); Anion Gap 13 mmol/L (4-12); Aspartate Amino Transferase 28 U/L (14-36); Bilirubin,Total 1.2 mg/dL (0.2-1.3); Blood Urea Nitrogen 9 mg/dL (7-17); Calcium 8.5 mg/dL (8.4-10.2); Carbon Dioxide 18 mmol/L (22-30); Chloride 106 mmol/L (98-107); Estimated Glomerular Filt Rate > 60; Glucose 90 mg/dL (65-110); Potassium 3.5 mmol/L (3.4-5.0); Sodium 137 mmol/L (137-145)
--- NOTE | 2024-10-01 21:25 | ED_ITS ---
HPI - General Adult General Chief complaint: Unspecified Stated complaint: sore throat, fatigue Time Seen by Provider: 09/27/24 15:01 Related Data Allergies Allergy/AdvReac Type Severity Reaction Status Date / Time No Known Allergies Allergy Unverified 09/27/24 15:01 [facility] Surgical History Surgical History History of removal of skin mole Family History Family History Father Hypertension Grandparent Hypertension Diabetes mellitus Social History Social History Smoking status: Never smoker Alcohol intake: current Alcohol use details: on occasion Substance use: never Substance use type: does not use Do You Feel Safe in your Home?: Yes Lack of Transportation: No Current Housing: I Have Housing Concerned About Future Housing: No Difficulty Paying Gas/Electric Bills: Decline to Answer Difficulty Paying for Meds: No Currently Unemployed: No Education: High School Diploma/GED Living arrangements: with family Occupation/Education: occupation Gender identity (if verbalized by the patient): Female Sexual Orientation (if Verbalized by the Patient): Straight or Heterosexual Course Vital Signs Vital signs: Vital Signs Temperature 39.2 C H 09/27/24 13:28 Pulse Rate 128 H 09/27/24 13:28 Respiratory Rate 18 09/27/24 13:28 Blood Pressure 121/71 09/27/24 13:28 Pulse Oximetry 100 09/27/24 13:28 Oxygen Delivery Room Air 09/27/24 13:28 Temperature 37.6 C H 09/27/24 18:48 Pulse Rate 95 09/27/24 18:48 Respiratory Rate 24 H 09/27/24 18:48 Blood Pressure 98/58 L 09/27/24 18:48 Pulse Oximetry 100 09/27/24 18:48 Oxygen Delivery Room Air 09/27/24 17:14 Medical Decision Making Vital Signs Vital Signs: Vital Signs Temperature 39.2 C H 09/27/24 13:28 Pulse Rate 128 H 09/27/24 13:28 Respiratory Rate 18 09/27/24 13:28 Blood Pressure 121/71 09/27/24 13:28 Pulse Oximetry 100 09/27/24 13:28 Oxygen Delivery Room Air 09/27/24 13:28 Temperature 37.6 C H 09/27/24 18:48 Pulse Rate 95 09/27/24 18:48 Respiratory Rate 24 H 09/27/24 18:48 Blood Pressure 98/58 L 09/27/24 18:48 Pulse Oximetry 100 09/27/24 18:48 Oxygen Delivery Room Air 09/27/24 17:14 Lab Data 09/27/24 16:10 09/27/24 16:10 Labs: Lab Results 09/27/24 09/27/24 Range/Units 13:33 16:10 WBC 4.6 (4.5-10.0) K/mm3 RBC 3.80 L (4.2-5.4) M/mm3 Hgb 11.6 L (12.0-15.0) g/dL Hct 35.4 L (37.0-47.0) % MCV 93.2 (80-100) fl MCH 30.5 (26-34) pg MCHC 32.8 (32-36) g/dl RDW 13.5 (11.5-14.5) % Plt Count 199 (150-375) k/mm3 MPV 10.5 H (7.4-10.4) fl Immature Gran % (Auto) 0.2 (0-0.5) % Neut % (Auto) 78.9 H (45.5-73.1) % Lymph % (Auto) 8.5 L (18.3-44.2) % [place] % (Auto) 12.2 H (2.6-8.5) % Eos % (Auto) 0.0 (0-4.4) % Baso % (Auto) 0.2 (0.2-1.2) % Lymph # (Auto) 0.39 L (0.9-3.2) K/mm3 [place] # (Auto) 0.6 (0.1-0.6) K/mm3 Eos # (Auto) 0.0 (0-0.3) K/mm3 Baso # (Auto) 0.0 (0.0-0.1) K/mm3 Abs Immat Gran (auto) 0.01 (0.00-0.031) K/mm3 Absolute Neuts (auto) 3.6 (1.3-6.7) K/mm3 Absolute Nucleated RBC 0.000 (0.0-0.012) K/mm3 Nucleated RBC % 0.0 (0.0-0.2) % Sodium 137 (137-145) mmol/L Potassium 3.5 (3.4-5.0) mmol/L Chloride 106 (98-107) mmol/L Carbon Dioxide 18 L (22-30) mmol/L Anion Gap 13 H (4-12) mmol/L BUN 9 (7-17) mg/dL Creatinine 0.56 L (0.7-1.0) mg/dL Estim Creat Clear Calc Not Reportable Estimated GFR > 60 (59 - ) Glucose 90 (65-110) mg/dL Calcium 8.5 (8.4-10.2) mg/dL Total Bilirubin 1.2 (0.2-1.3) mg/dL AST 28 (14-36) U/L ALT 12 (6-35) U/L Alkaline Phosphatase 72 (38-126) U/L Total Protein 7.0 (6.3-8.2) g/dL Albumin 4.1 (3.5-5.1) g/dL Influenza A (RT-PCR) Negative (Negative) Influenza B (RT-PCR) Negative (Negative) RSV (RT-PCR) Negative (Negative) SARS-CoV-2 RNA (RT-PCR) Positive A (Negative) Discharge Plan Discharge Clinical Impression: Acute upper respiratory infection, Influenza A, Dehydration, mild Patient Disposition: Home, Self-Care Condition: Stable Instructions: Antibiotic Form, Influenza (ED) Additional Instructions: Please return to the ER with an worsening symptoms. Follow-up with primary care provider in the next 2-3 days. Take all medications as prescribed. Patient Language: Irish Prescriptions: New ondansetron 4 mg tablet,disintegrating 4 mg PO Q8H Qty: 12 0RF Follow-up/Referrals: Owen,MD Abhay [Primary Care Provider] - Stand Alone Forms: Work/School Release IP Time of Disposition: 19:46
== END 2024-09-27 20:17 | disposition home or self-care (01) ==
PROVIDERS: Emergency Medicine; Emergency Provider Registered Nurse; PCP Pediatrics
DX: U07.1 COVID-19 (principal); J06.9 Acute upper respiratory infection, unspecified; E86.0 Dehydration; R94.31 Abnormal electrocardiogram [ECG] [EKG]
CPT/HCPCS: 36415; 71045; 80053; 85025; 87637; 93005; 96361; 96374; 96375; 99284; A9270; J1885; J2405; J7030

== ENCOUNTER 2025-04-03 19:14 | Emergency (ER) | payer OTHER, SELFPAY ==
[2025-04-03 19:17] VITALS: BP 110/69; PULSE 84; RESP 16; TEMP 36.7; O2SAT 100
--- OUTSIDE RECORDS SUMMARY | 2025-04-03 19:17 | XMS_ITS | Clinical Summary ---
Author Organization [facility] Address [address] [place] [address] Phone Care Team Providers Care Metal Temperer Name Role Phone Colleen Cazares Lico [employer], [employer] Primary Care Provider [phone] Allergies No known active allergies Medications Norgestimate-eth inyl estradiol (Faustina) 0.25-35 MG-MCG Tablet Take 1 Tablet by mouth daily. Active Active Problems Problem Noted Date Diagnosed Date Dermatofibroma 05/21/2014 Family History Medical History Relation Name Comments Hypertension Father Relation Name Status Comments Father Alive Mother Alive Social History Tobacco Use Types Packs/Day Years Used Date Smoking Tobacco: Never Smokeless Tobacco: Never Tobacco Cessation:Counseling Given: Not Answered Alcohol Use Standard Drinks/Week Comments Never 0 (1 standard drink = 0.6 oz pur e alcohol) PHQ-2 Answer Date Recorded Total Score - Questions 1-9 0 10/04 Sexually Active Control Partners Comments Yes Comments No Sex and Gender Information Value Date Recorded Sex Assigned at Not on file Legal Sex Female 2:29 PM DINING CAR CONDUCTOR Gender Identity Not on file Sexual Orientation Not on file Last Filed Vital Signs Vital Sign Reading Time Taken Comments Blood Pressure 108/64 10/17/2024 1:16 PM DINING CAR CONDUCTOR Pulse 85 10/17/2024 1:16 PM DINING CAR CONDUCTOR Temperature 37.4 C (99.3 F) 10/17/2024 1:16 PM DINING CAR CONDUCTOR Respiratory Rate 18 10/17/2024 1:16 PM DINING CAR CONDUCTOR Oxygen Saturation 100% 10/17/2024 1:16 PM DINING CAR CONDUCTOR Inhaled Oxygen Concentration - - Weight 51.7 kg (114 lb) 10/17/2024 1:16 PM DINING CAR CONDUCTOR Height 170.2 cm (5' 7) 10/17/2024 1:16 PM DINING CAR CONDUCTOR Body Mass Index 17.85 10/17/2024 1:16 PM DINING CAR CONDUCTOR Plan of Treatment Health Maintenance Due Date Last Done Comments Hepatitis C Virus (HCV) Screening 2004 TdaP Immunization 2004 Human Papillomavirus (HPV) Immunization (2 - 2-dose series) 12/12/2015 06/12/2015 Meningococcal B Immunization (1 of 2 - Standard) 2020 SARS-COV-2 Immunization ( - season) 2024 Pap Smear 01/10/2025 Influenza Immunization (#1) 2025 2004 Respiratory Syncytial Virus (RSV) Immunization (Adult) (1 - 1-dose 75+ series) 01/10/2079 Pneumococcal Immunization Combined Aged Out 2004 No longer eligible b ased on patient's age to complete this topic Hepatitis B Immunization Completed 005, 2004, 2004 Meningococcal Immunization (ACWY) Completed 04/15/2021 Rotavirus Immunization Aged Out No lo nger eligible based on patient's age to complete this topic Insurance MEDICAID [place] Care Teams Metal Temperer Relationship Specialty Start Date End Date Colleen Cazares, [employer], [employer] [address] [place] [address] PCP - General Certified Nurse Practitioner 10/17/24
--- OUTSIDE RECORDS SUMMARY | 2025-04-03 19:17 | XMS_ITS | Clinical Summary ---
Author Organization [facility] Address [address] [place] [address] Care Team Providers Care Child Daycare Worker Name Role Phone Abhay Weaver MD Primary Care Provider [phone] Source Comments [facility],non-owned Affiliates and Associated Physician Practices is amultiple site organization consisting of ambulatory clinics and hospital sitesin [place], [place], [place] and [place]. This disclosure is being madepursuant to the Care Everywhere program and may not contain all information available regarding this patient. Last updated 18.[facility] Allergies No known active allergies Medications * Be aware that medications may not be up to date on this document. Alwaysverify current medications with the patient. Pediatric Multivitamins-Ir on (DECLAN DROPS/IRON PO) Take by mouth. 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 Gender Identity Not on file Sexual Orientation Not on file Last Filed Vital Signs Vital Sign Reading Time Taken Comments Blood Pressure 102/78 11/16/2017 8:58 PM CDT Pulse 87 11/16/2017 8:58 PM CDT Temperature 37.3 C (99.1 F) 11/16/2017 8:58 PM CDT Respiratory Rate 20 11/16/2017 8:58 PM CDT Oxygen Saturation 100% 11/16/2017 8:58 PM CDT Inhaled Oxygen Concentration - - Weight 44.1 kg (97 lb 3.6 oz) 11/16/2017 8:58 PM CDT Height 168 cm (5' 6.14) 11/16/2017 8:58 PM CDT Body Mass Index 15.62 11/16/2017 8:58 PM CDT Plan of Treatment Health Maintenance Due Date Last Done Comments HIV SCREENING 01/10/2019 HPV VACCINE (1 - 3-dose series) 01/10/2019 CHLAMYDIA/GONORRHEA SCREENING 2020 MENINGOCOCCAL (Group B) VACC INE SHARED DECISION-MAKING (1 of 2 - Standard) 2020 HEPATITIS C SCREENING 01/06/2022 DTAP/TDAP/TD VACCINES (1 - Tdap) 01/10/2023 HEPATITIS B VACCINE (1 of 3 - 19+ 3-dose series) 01/10/2023 COVID-19 VACCINE (1 - 2023-2 5 season) 2024 DEPRESSION SCREENING 09/03/2024 INFLUENZA VACCINE (#1) 2025 ZOSTER VACCINE (1 of 2) 01/10/2054 HIB VACCINE Aged Out No longer eligi ble based on patient's age to complete this topic MENINGOCOCCAL GROUPS A/C/Y/W VACCINE Aged Out No longer eligible b ased on patient's age to complete this topic PNEUMOCOCCAL VACCINE Aged Out No long er eligible based on patient's age to complete this topic Insurance [facility] - [facility] Care Teams Child Daycare Worker Relationship Specialty Start Date End Date Abhay Weaver MD [address] [place] [id number] PCP - General 10/07/10
--- OUTSIDE RECORDS SUMMARY | 2025-04-03 19:17 | XMS_ITS | Clinical Summary ---
Author Organization [facility] Address [address] [place] [id number] Care Team Providers Care Event Marketing Coordinator Name Role Phone Abhay Weaver MD Primary Care Provider [phone] Allergies No known active allergies Medications ondansetron [...] on file Legal Sex Female 11:46 AM BUILDING CUSTODIAN Gender Identity Not on file Sexual Orientation Not on file Last Filed Vital Signs Vital Sign Reading Time Taken Comments Blood Pressure 97/83 10/14/2022 7:11 PM BUILDING CUSTODIAN Pulse 139 10/14/2022 7:11 PM BUILDING CUSTODIAN Temperature 37.4 C (99.3 F) 10/14/2022 7:11 PM BUILDING CUSTODIAN Respiratory Rate 18 10/14/2022 7:11 PM BUILDING CUSTODIAN Oxygen Saturation 100% 10/14/2022 7:11 PM BUILDING CUSTODIAN Inhaled Oxygen Concentration - - Weight 49.1 kg (108 lb 3.9 oz) 10/14/2022 7:11 P M BUILDING CUSTODIAN Height 170.2 cm (5' 7) 10/14/2022 7:11 PM BUILDING CUSTODIAN Body Mass Index 16.95 10/14/2022 7:11 PM BUILDING CUSTODIAN Plan of Treatment Health Maintenance Due Date Last Done Comments Cervical Cancer Screening Pa p Smear (Age 21 to 29) Every 3 Years 2004 Cervical Cancer Screening 2004 Annual Physical 01/10/2007 HPV Vaccines (2 - 2-dose series) 12/12/2015 06/12/2015 Meningococcal B Vaccine (1 o f 2 - Standard) 2020 Hepatitis C 01/10/2022 DTaP, Tdap and Td Vaccines ( 4 - Tdap) 01/10/2023 2004, 2004, 2004 COVID-19 Vaccine (1 - 2023-2 5 season) 2024 Pneumococcal Vaccine: Pediatrics (0 to 5 Years) and At-Risk Patients (6 to 49 Years) Aged Out 2004 No longer eligible b ased on patient's age to complete this topic Hepatitis B Vaccines Completed 02/12/2005, 2004, 2004 Meningococcal Vaccine Completed 04/15/2021 RSV Immunizations Under 20 Months Aged Out No longer eligible b ased on patient's age to complete this topic Insurance Care Teams Event Marketing Coordinator Relationship Specialty Start Date End Date Abhay Weaver MD [address] [facility] [address] [place] [address] PCP - General PEDIATRICS 10/03/19
[2025-04-03 19:44] LABS: Hematocrit 40.2 % (37.0-47.0); Hemoglobin 12.9 g/dL (12.0-15.0); Immature Granulocyte Percent A 0.3 % (0-0.5); Lymphocytes Absolute Auto 3.76 K/mm3 (0.9-3.2); Mean Corpuscular HGB Conc 32.1 g/dl (32-36); Mean Corpuscular Hemoglobin 30.6 pg (26-34); Mean Corpuscular Volume 95.3 fl (80-100); Nucleated Red Blood Cells Absolute Auto 0.000 K/mm3 (0.0-0.012); Nucleated Red Blood Cells Perc 0.0 % (0.0-0.2); Platelet Count Result 219 k/mm3 (150-375); Red Blood Count 4.22 M/mm3 (4.2-5.4); White Blood Count 7.2 K/mm3 (4.5-10.0)
[2025-04-03] MEDS: FAMOTIDINE 20 MG TABLET PO (19:47)
[2025-04-03] MEDS: MAG HYDROX/AL HYDROX/SIMETH 30 ML UDC PO (19:47)
--- NOTE | 2025-04-04 01:24 | ED_ITS ---
HPI - Abdominal Pain General Chief Complaint: Abdominal Pain Stated Complaint: i have gas Time Seen by Provider: 04/03/25 19:30 History of Present Illness HPI narrative: Patient hears for abdominal pain, feels sharp and diffuse, this has happened in the past when she is in public and unable to pass gas, then starts having bloating and discomfort. Family history of Crohn's disease. No nausea vomiting. Related Data Home Medications ?Medication ?Instructions ?Recorded ?Confirmed ?Last Taken ?Type norgestimate 0.25 mg-ethinyl 1 tablet PO DAILY 12/22/24 01/14/25 Unknown History estradiol 0.035 mg tablet (Faustina) Allergies Allergy/AdvReac Type Severity Reaction Status Date / Time No Known Allergies Allergy Verified 01/14/25 15:21 Review of Systems 2 Review of Systems: All systems reviewed & are unremarkable except as noted in HPI and below PMFSH Surgical History Surgical History History of removal of skin mole Family History Family History Father Hypertension Grandparent Hypertension Diabetes mellitus Social History Social History Smoking status: Never smoker Alcohol intake: never Substance use: never Substance use type: does not use Current Housing: Decline to Answer Concerned About Future Housing: Decline to Answer Difficulty Paying Gas/Electric Bills: Decline to Answer Difficulty Paying for Meds: Decline to Answer Currently Unemployed: Decline to Answer Education: Decline to Answer Difficulty w/ Childcare or Family Care: Decline to Answer Living arrangements: with family Occupation/Education: occupation Gender identity (if verbalized by the patient): Female Sexual Orientation (if Verbalized by the Patient): Straight or Heterosexual Exam 2 Narrative: EXAMINATION OF ORGAN SYSTEMS/BODY AREAS: Constitutional: Vital signs per nursing GENERAL:[No acute distress, non-toxic appearing.] HEAD: Normal with no signs of head trauma. EYES: EOMI, conjunctiva normal ENT: Hearing grossly intact LUNGS: Nonlabored breathing. HEART: [Regular rate and rhythm] ABD: [Soft], no focal tenderness, bloating EXT: Normal range of motion SKIN: [No rashes or lesions.] NEURO: [Alert and oriented x 3. No gross focal sensory or strength deficits.] PSYCH: Normal affect Course Vital Signs Vital signs: Vital Signs Temperature 98.0 F 04/03/25 19:17 Pulse Rate 84 04/03/25 19:17 Respiratory Rate 16 04/03/25 19:17 Blood Pressure 110/69 04/03/25 19:17 Pulse Oximetry 100 04/03/25 19:17 Temperature 98.0 F 04/03/25 19:17 Pulse Rate 84 04/03/25 19:17 Respiratory Rate 16 04/03/25 19:17 Blood Pressure 110/69 04/03/25 19:17 Pulse Oximetry 100 04/03/25 19:17 MDM - Abdominal Pain MDM Narrative Medical decision making narrative: Patient presenting here with abdominal pain, she reports it feels like gas, abdomen soft without focal tenderness but she does look uncomfortable. Which are decision making with mother at bedside, will forego CT at this time. Unfortunately CMP was hemolyzed and patient refuses additional blood draw. She is given Maalox and Pepcid here and on re-evaluation, her symptoms had completely resolved. Abdomen soft nontender. She and mother at bedside feel quite comfortable with outpatient management follow-up to GI with return precautions, prescriptions as needed. Lab Data 04/03/25 19:38 04/03/25 19:38 Labs: Lab Results 04/03/25 Range/Units 19:38 WBC 7.2 (4.5-10.0) K/mm3 RBC 4.22 (4.2-5.4) M/mm3 Hgb 12.9 (12.0-15.0) g/dL Hct 40.2 (37.0-47.0) % MCV 95.3 (80-100) fl MCH 30.6 (26-34) pg MCHC 32.1 (32-36) g/dl RDW 13.1 (11.5-14.5) % Plt Count 219 (150-375) k/mm3 MPV 10.6 H (7.4-10.4) fl Immature Gran % (Auto) 0.3 (0-0.5) % Neut % (Auto) 38.1 L (45.5-73.1) % Lymph % (Auto) 52.4 H (18.3-44.2) % [place] % (Auto) 5.7 (2.6-8.5) % Eos % (Auto) 2.9 (0-4.4) % Baso % (Auto) 0.6 (0.2-1.2) % Lymph # (Auto) 3.76 H (0.9-3.2) K/mm3 [place] # (Auto) 0.4 (0.1-0.6) K/mm3 Eos # (Auto) 0.2 (0-0.3) K/mm3 Baso # (Auto) 0.0 (0.0-0.1) K/mm3 Abs Immat Gran (auto) 0.02 (0.00-0.031) K/mm3 Absolute Neuts (auto) 2.7 (1.3-6.7) K/mm3 Absolute Nucleated RBC 0.000 (0.0-0.012) K/mm3 Nucleated RBC % 0.0 (0.0-0.2) % Sodium Cancelled Potassium Cancelled Chloride Cancelled Carbon Dioxide Cancelled Anion Gap Cancelled BUN Cancelled Creatinine Cancelled Estim Creat Clear Calc Cancelled Estimated GFR Cancelled Glucose Cancelled Calcium Cancelled Total Bilirubin Cancelled AST Cancelled ALT Cancelled Alkaline Phosphatase Cancelled Total Protein Cancelled Albumin Cancelled Lipase Cancelled Discharge Plan Discharge Clinical Impression: Abdominal pain Patient Disposition: Home Condition: Stable Instructions: Abdominal Pain (ED) Additional Instructions: Please follow up with the GI specialist; you can try the medications as prescribed; you can always return for any further issues. Patient Language: Upper Sorbian Prescriptions: New famotidine 20 mg tablet 20 mg PO DAILY PRN (Reason: Acid Reflux) Qty: 30 0RF alum-mag hydroxide-simeth [Maalox Advanced] 200-200-20 mg/5 mL suspension 10 ml PO QID PRN (Reason: dyspepsia) Qty: 200 0RF Rx Instructions: administer between meals and at bedtime No Action norgestimate-ethinyl estradiol [Faustina] 0.25-0.035 mg tablet 1 tablet PO DAILY clobetasol 0.05 % ointment 1 applic topical .COMPLEX Qty: 60 3RF Rx Instructions: 1 applic topically to the vulva x 4 weeks-- then continue using at least 1x/week; can increase to BID x 2wks max if having significant irritation Follow-up/Referrals: Omar Lemus MD [Physician] - 2 Days UNKNOWN,DOCTOR [Primary Care Provider] -
== END 2025-04-03 20:54 | disposition home or self-care (01) ==
PROVIDERS: Emergency Provider Emergency Medicine
DX: R10.9 Unspecified abdominal pain (principal); Z79.3 Long term (current) use of hormonal contraceptives
CPT/HCPCS: 36415; 85025; 99283; A9270